=== PATIENT | male | born 1970 | race Caucasian/White ===

== ENCOUNTER 2024-08-06 11:55 | Emergency (ER) | payer MEDICAID, SELFPAY ==
[2024-08-06 12:07] VITALS: BP 129/100; PULSE 99; RESP 18; TEMP 36.8; O2SAT 95; BMI 23.7
--- NOTE | 2024-08-06 12:35 | CRLHL7_ITS ---
For Patients: As a result of the Century Cures Act, medical imaging exams and procedure reports are released immediately into your electronic medical record. You may view this report before your referring provider. If you have questions, please contact your health care provider. INDICATION: Diarrhea, blood in stool TECHNIQUE: Axial images were obtained from the diaphragm to the pubic symphysis. Reformats were obtained in the coronal and sagittal plane. IV Contrast: Initial noncontrast followed by 100 cc Isovue 370 Oral Contrast: None COMPARISON: None. FINDINGS: Lower chest: Unremarkable. Liver: Normal in contour with focal arterial enhancing lesion measuring 6 millimeters within the right lobe of the liver which is slightly more prominent than background liver in the venous phase (series 5, image 134). Indeterminate hypodensity within the right lobe of the liver measuring 8 millimeters at the dome (series 11, image 44). Gallbladder and bile ducts: Unremarkable. No stones or inflammation. No biliary dilatation. Spleen: Unremarkable. Normal in size without mass. Pancreas: Unremarkable. No mass or inflammation. Adrenal glands: Unremarkable. No nodules. Kidneys: Right kidney is normal in contour without hydronephrosis. Left pelvic kidney without evidence of hydronephrosis or focal lesion. Vasculature: Unremarkable. GI tract: The stomach is normal in contour and is decompressed. No vascular blush or extravasation seen within the small bowel. Small bowel decompressed. Limited evaluation of the terminal ileum due to incomplete distention. Unremarkable appendix. The colon is normal in caliber without hyperenhancement. Mild engorgement of vessels within the pericolonic mesentery questioned. Pelvis: Trace free fluid in the deep pelvis. Bones: Degenerative disc disease lumbar spine. IMPRESSION: 1. No evidence of contrast extravasation on CTA. Some engorgement of the vasculature in the pericolonic mesentery question diffusely suggestive of a diffuse colitis in this clinical setting. 2. Indeterminate liver lesions including an 8 millimeter hypodense lesion in the right lobe an arterial hyperenhancing lesion in the left lobe measuring 6 millimeters. Follow-up outpatient liver MRI can be considered for further characterization. 3. Incidental left pelvic kidney. Please note that all CT scans at this facility use dose modulation, iterative reconstruction, and/or weight-based dosing when appropriate to reduce radiation dose to as low as reasonably achievable. Dictated by Meliton Hutton MD @ 08/06/2024 3:01:23 PM (Electronically Signed)
--- NOTE | 2024-08-06 12:39 | ED.GENADULT ---
HPI - General Adult General Date Seen: 08/06/24 Chief complaint: Diarrhea Stated complaint: blood in stool/diarrhea Time Seen by Provider: 08/06/24 12:04 Source: patient Mode of arrival: ambulatory Limitations: no limitations History of Present Illness HPI narrative: Patient is a 53-year-old male presenting to emergency department for diarrhea and blood in his stool. He states 4 days ago he noticed some abdominal cramping and he had a large amount of diarrhea all day. Noticed some black appearance to some of the stool. Symptoms persist into next day but he states they seem to be getting better each day up until Tuesday which she states he felt almost fully back to normal. Continued to do well all Tuesday and then woke up today and had another large episode of diarrhea was of large amount of blood in his stool he states this time of blood was clearly red. Did not noticed any melena at that time. States he still feels bloated but denies any abdominal pain. Denies fevers, chest pain, shortness of breath, lightheadedness, dizziness, weakness, numbness, headache, vision changes. Has had some chills. Is not aware of any sick contacts. No recent travel or camping. No previous abdominal surgeries. Denies any rectal pain. Related Data Previous Rx's ?Medication ?Instructions ?Recorded albuterol sulfate 90 mcg/actuation 2 puff inhalation Q4-6H PRN 01/18/24 aerosol inhaler shortness of breath or wheezing #8.5 grams Allergies Allergy/AdvReac Type Severity Reaction Status Date / Time No Known Drug Allergies Allergy Verified 08/06/24 13:55 Review of Systems Status of ROS: Reports: 10 or more systems reviewed and unremarkable except as noted in History and below PFSH [facility] Social History Smoking Status: Never smoker Do you use any of these nicotine containing products: None How often do you have a drink containing alcohol: monthly or less AUDIT-C Alcohol total score: 1 Non-prescribed substance use: denies use Exam Narrative: Exam Narrative: Const: Well-nourished, Well-developed, in mild distress Eyes: PERRL, no conjunctival injection, and symmetrical lids HENT: Atraumatic external nose and ears. Moist mucous membranes. Neck: Symmetric, trachea midline, No thyromegaly. CVS: RRR, No murmurs or gallops. Peripheral pulses 2+ and equal in all extremities RESP: Unlabored respiratory effort. Clear to auscultation bilaterally. GI: Nontender/Nondistended, No rebound or guarding. MSK:Extremities w/o deformity, Normal Active ROM Skin: Warm, Dry. No rashes or lesions. Neuro: Normal Muscle tone, No focal neurological deficits. Psych: Awake, Alert, & Oriented x3. Appropriate mood and affect. Const: Vital Signs, click to edit/add: Vital Signs - 24 hr 08/06/24 12:07 08/06/24 14:04 Temperature 98.3 F Pulse Rate [Right Pulse Oximeter] 99 68 Respiratory Rate 18 18 Blood Pressure [Ri ght Upper Arm] 129/100 H 129/88 Pulse Oximetry 95 98 Oxygen Delivery Me thod Room Air Course Vital Signs Vital signs: Initial Vital Signs Temperature 98.3 F 08/06/24 12:07 Temperature Source Temporal Artery Scan 08/06/24 12:07 Pulse Rate 99 08/06/24 12:07 Pulse Rhythm Regular 08/06/24 12:07 Respiratory Rate 18 08/06/24 12:07 Blood Pressure 129/100 H 08/06/24 12:07 Blood Pressure Mean 109 H 08/06/24 12:07 Blood Pressure Position Sitting 08/06/24 12:07 Pulse Oximetry 95 08/06/24 12:07 Oxygen Delivery Method Room Air 08/06/24 12:07 Vital Signs Temperature 98.3 F 08/06/24 12:07 Pulse Rate 99 08/06/24 12:07 Respiratory Rate 18 08/06/24 12:07 Blood Pressure 129/100 H 08/06/24 12:07 Pulse Oximetry 95 08/06/24 12:07 Oxygen Delivery Method Room Air 08/06/24 12:07 Temperature 98.3 F 08/06/24 12:07 Pulse Rate 68 08/06/24 14:04 Respiratory Rate 18 08/06/24 14:04 Blood Pressure 129/88 08/06/24 14:04 Pulse Oximetry 98 08/06/24 14:04 Oxygen Delivery Method Room Air 08/06/24 12:07 Medications Administered Medications: Discontinued Medications Generic Name Dose Route Start Last Admin Trade Name Freq PRN Reason Stop Dose Admin Lactated Ringer's 1,000 mls @ 1,000 mls/hr 08/06/24 12:35 08/06/24 15:07 Lactated Ringers 1000 Ml IV 08/06/24 13:34 Infused .Q1H ONE Infusion Medical Decision Making MDM Narrative Medical decision making narrative: Patient is a 53-year-old male presenting to the emergency department for diarrhea and a GI bleed. Sounds like he had melena at 1st and now it sounds like he has hematochezia. This could be all related to a GI infection. Will do a CT scan GI bleed protocol. He does state he is feeling dehydrated will be given a L fluid. Also do lab work including CMP, CBC, lipase, magnesium, COVID/flu. Is not requiring anything for pain or nausea at this time. Lab work all returned showing no concerning abnormalities. No signs of HUNG or electrolyte abnormalities. White count within normal limits. No signs of anemia. COVID and flu are negative. CTA results reviewed by myself and the radiologist. They returned showing no obvious signs of bleed but it does appear to be signs of a colitis. A couple incidental findings were seen and he can follow-up outpatient for these. He is otherwise doing well at this time I believe he is safe for discharge. He is agreeable to this plan. Antibiotics are not indicated at this time. Lab Data Labs: Lab Results 08/06/24 Range/Units 12:51 WBC 5.56 (4.50-11.00) K/uL RBC 5.43 (4.30-5.90) m/uL Hgb 16.1 (13.5-17.5) gm/dL Hct 45.5 (37.0-53.0) % MCV 84 (80-100) fL MCH 30 (26-34) pg MCHC 35 (32-36) gm/dL RDW Coeff of Jean Carlos 12.2 (11.5-15.5) % Plt Count 241 (140-440) K/uL Neut % (Auto) 60.5 (42.0-72.0) % Lymph % (Auto) 18.7 L (20-44) % [place] % (Auto) 19.4 H (0.0-11.0) % Eos % (Auto) 0.7 (0.0-7.0) % Baso % (Auto) 0.2 (0.0-3.0) % Neut # (Auto) 3.36 (1.7-7.0) K/uL Lymph # (Auto) 1.00 (0.90-2.90) K/uL [place] # (Auto) 1.10 H (0.00-0.90) K/UL Eos # (Auto) 0.04 (0.00-0.50) K/uL Baso # (Auto) 0.01 (0.00-0.30) K/uL Abs Immat Gran (auto) 0.03 (0.00-0.30) K/uL Imm/Tot Granulo (auto) 0.5 % Sodium 136 (135-149) mmol/L Potassium 3.7 (3.6-5.1) mmol/L Chloride 99 (96-114) mmol/L Carbon Dioxide 22 (20-32) mmol/L Anion Gap 15 (7-15) mEq/L BUN 19 (7-30) mg/dL Creatinine 1.0 (0.5-1.5) mg/dL Estimated Creat Clear 92.69 Estimated GFR 89 ml/min Glucose 97 (60-115) mg/dL Calcium 9.3 (8.4-10.6) mg/dL Magnesium 2.0 (1.5-2.6) mg/dL Total Bilirubin 1.4 (0.1-1.5) mg/dL AST 40 H (12-35) U/L ALT 21 (4-50) U/L Alkaline Phosphatase 59 (40-150) U/L Total Protein 7.5 (6.0-8.3) g/dL Albumin 4.7 (3.3-5.0) g/dL Lipase 62 (23-300) U/L SARS-CoV-2 (PCR) Negative SARS-CoV-2 (Negative) Influenza Type A (PCR) Negative PCR FLU A (Negative) Influenza Type B (PCR) Negative PCR FLU B (Negative) Imaging Data CTA abdomen pelvis GI bleed protocol: Attestation: I have reviewed the pertinent imaging results. Radiologist's impression: 1. No evidence of contrast extravasation on CTA. Some engorgement of the vasculature in the pericolonic mesentery question diffusely suggestive of a diffuse colitis in this clinical setting. 2. Indeterminate liver lesions including an 8 millimeter hypodense lesion in the right lobe an arterial hyperenhancing lesion in the left lobe measuring 6 millimeters. Follow-up outpatient liver MRI can be considered for further characterization. 3. Incidental left pelvic kidney. Please note that all CT scans at this facility use dose modulation, iterative reconstruction, and/or weight-based dosing when appropriate to reduce radiation dose to as low as reasonably achievable. Dictated by Meliton Hutton MD @ 08/06/2024 3:01:23 PM Discharge Plan Discharge Clinical Impression: Colitis Patient Disposition: Home, Self-Care Condition: Stable Instructions: Acute Diarrhea (ED) Additional Instructions: Rear CT shows likely colitis. At this time antibiotics are not indicated but I can not be reassessed if symptoms start to get worse. There is also a liver lesion seen on the CT scan. Your liver enzymes were normal and you can follow-up with your primary care provider on if they want to further image this lesion P Prescriptions: No Action albuterol sulfate 90 mcg/actuation HFA aerosol inhaler 2 puff inhalation Q4-6H PRN (Reason: shortness of breath or wheezing) Qty: 8.5 0RF Follow Up/Referrals: Provider,Not a Local [Primary Care Provider] - Stand Alone Forms: MyHealth Info Instructions
[2024-08-06 13:05] LABS: Basophils Absolute Auto 0.01 K/uL (0.00-0.30); Basophils Percent Auto 0.2 % (0.0-3.0); Eosinophils Absolute Auto 0.04 K/uL (0.00-0.50); Eosinophils Percent Auto 0.7 % (0.0-7.0); Hematocrit 45.5 % (37.0-53.0); Hemoglobin* 16.1 gm/dL (13.5-17.5); Immature Granulocytes Abs Auto 0.03 K/uL (0.00-0.30); Immature Granulocytes Pct Auto 0.5 %; Lymphocytes Percent Auto 18.7 % (20-44); Mean Corpuscular HGB Conc 35 gm/dL (32-36); Mean Corpuscular Hemoglobin 30 pg (26-34); Mean Corpuscular Volume 84 fL (80-100); Monocytes Percent Auto 19.4 % (0.0-11.0); Neutrophils Absolute Auto 3.36 K/uL (1.7-7.0); Neutrophils Percent Auto 60.5 % (42.0-72.0); Platelet Count* 241 K/uL (140-440); RDW Coefficient of Variation % 12.2 % (11.5-15.5); Red Blood Count 5.43 m/uL (4.30-5.90); White Blood Count* 5.56 K/uL (4.50-11.00)
[2024-08-06 13:06] LABS: Slide Review Reflex No
[2024-08-06 13:27] LABS: Albumin* 4.7 g/dL (3.3-5.0); Chloride* 99 mmol/L (96-114)
[2024-08-06 13:28] LABS: Potassium* 3.7 mmol/L (3.6-5.1); Sodium* 136 mmol/L (135-149)
[2024-08-06 13:30] LABS: Anion Gap 15 mEq/L (7-15); Aspartate Amino Transferase* 40 U/L (12-35); Bilirubin Total* 1.4 mg/dL (0.1-1.5); Carbon Dioxide* 22 mmol/L (20-32); Est. Creatinine Clearance* 92.69; Estimated Glomerular Filt Rate 89 ml/min; Total Protein* 7.5 g/dL (6.0-8.3)
[2024-08-06 13:31] LABS: Alanine Aminotransferase* 21 U/L (4-50); Alkaline Phosphatase* 59 U/L (40-150); Blood Urea Nitrogen* 19 mg/dL (7-30); Calcium* 9.3 mg/dL (8.4-10.6); Glucose* 97 mg/dL (60-115); Lipase* 62 U/L (23-300)
[2024-08-06 13:44] LABS: PCR FLU A Negative PCR FLU A (Negative); PCR FLU B Negative PCR FLU B (Negative); SARS PCR* Negative SARS-CoV-2 (Negative)
[2024-08-06] MEDS: LACTATED RINGERS 1000 ML 1,000 ML IV (13:59)
[2024-08-06 14:04] VITALS: BP 129/88; PULSE 68; RESP 18; O2SAT 98
== END 2024-08-06 15:24 | disposition home or self-care (01) ==
PROVIDERS: Emergency Provider Student in an Organized Health Care Education/Training Program
DX: K52.9 Noninfective gastroenteritis and colitis, unspecified (principal)
CPT/HCPCS: 36415; 74174; 80053; 83690; 83735; 85025; 87631; 99283; 99284; J7120; Q9967